=== PATIENT | female | born 1970 | race Caucasian/White ===

== ENCOUNTER 2019-12-16 10:07 | Inpatient (IN) | payer OTHER ==
[~2019-12-16] VITALS: Ht 157.5 cm; Wt 65.8 kg
[2019-12-16] MEDS ORDERED: COZAAR50 MG (10:25)
[2019-12-17] MEDS ORDERED: AMOX1TAB5 PO (13:01)
[2019-12-17] MEDS ORDERED: ULTRACET PO (13:02)
[2019-12-17] MEDS ORDERED: PROTONIX40 MG PO (13:03)
== END 2019-12-17 17:51 | disposition home or self-care (01) | DRG 337 ==
LOC: ER 10:07 → SEC-K 13:23 → SURH 18:52
PROVIDERS: ADMIT Surgery; ATTEND Surgery
PROC: 0DNW0ZZ Release Peritoneum, Open Approach (ICD-10-PCS; 2019-12-16)
PROC: 0DTJ0ZZ Resection of Appendix, Open Approach (ICD-10-PCS; principal; 2019-12-16 16:45)
DX: K35.890 Other acute appendicitis without perforation or gangrene (principal); I10 Essential (primary) hypertension; Z20.828 Contact with and (suspected) exposure to other viral communicable diseases; N73.6 Female pelvic peritoneal adhesions (postinfective)